=== PATIENT | female | born 1990 | race African-American/Black ===

== ENCOUNTER 2023-07-07 18:04 | Emergency (ER) | payer OTHER, SELFPAY ==
[2023-07-07 18:16] VITALS: BP 122/88; PULSE 76; RESP 16; TEMP 36.4; O2SAT 100
[2023-07-07 18:18] VITALS: BP 122/88; PULSE 76; RESP 16; TEMP 36.4; O2SAT 100
--- NOTE | 2023-07-07 18:45 | ED.FEMALEGU ---
HPI - Female Genitourinary General Chief complaint: Urogenital-Female Stated complaint: Female Urogenital Source: patient Mode of arrival: ambulatory Limitations: no limitations History of Present Illness HPI Narrative: 33-year-old female presents to [facility] with complaints of clear/white colored vaginal discharge, orders discharge for the past week. Patient reports that she does notice a fishy type odor to the discharge. Patient denies new sexual partners but is requesting STD testing at this time. Patient reports that she has had 2 vaginosis in the past for symptoms similar. Patient denies fever, chills, nausea vomiting or diarrhea. MD elicited complaint: vaginal discharge Onset (ago): week(s) (1) Vaginal discharge: white and vaginal odor Vaginal bleeding: none Exacerbating factors: none Relieving factors: none Patient : No Date of Last Menstrual Period: 06/30/23 Related Data Home Medications Medication Instructions Recorded Confirmed norethindrone 1 mg-ethinyl 1 tablet DIRECTED 07/07/23 07/07/23 estradiol 10 mcg (24)-iron 10 mcg(2) tablet (Lo Loestrin Fe) Allergies Allergy/AdvReac Type Severity Reaction Status Date / Time ibuprofen Allergy Intermediate Hives Verified 07/07/23 18:18 Review of Systems Constitutional: Constitutional: Denies chills and Denies fatigue ENT: Denies vertigo, Denies dizziness and Denies epistaxis Respiratory: Respiratory: Denies cough Gastrointestinal: Gastrointestinal: Denies diarrhea, Denies nausea and Denies vomiting Genitourinary: Genitourinary: Denies hematuria, Denies dysuria, Denies pelvic pain, Denies flank pain, Denies urinary incontinence and Reports vaginal discharge Comments: Vaginal odor Integumentary/Breasts: Skin/Breast: Denies rash PMFSH Comments At time of signature, I agree with nursing past medical, surgical, social and family history. There is no relevant family history pertinent to the presenting complaint. Exam Const: General: healthy appearing and no acute distress Nutritional Appearance: well nourished Orientation/consciousness: patient oriented x3 Limitations: no limitations HENMT: Head: normal to inspection Eyes: Conjunctivae: conjunctivae normal Neck: Neck: normal visual inspection Resp: Effort & Inspection: normal respiratory effort and not labored Auscultation: clear to auscultation bilaterally, no crackles, no rales, no rhonchi and no wheezes Cardio: Rate: regular rate Rhythm: regular rhythm Heart sounds: no murmurs GI: GI Palp: Yes Soft to palpation, No Tenderness to palpation present (GI), No Guarding due to palpation present (GI) and No Rigid due to palpation : General: Yes bladder normal to palpation Other: Vaginal exam deferred Back/Spine/Pelvis: Back: no CVA tenderness Skin: General skin exam: normal color Rashes: no rashes Wounds: no wounds Neuro: General: patient oriented x3 Speech: normal speech Gait exam (Neuro): Normal gait present Psych: Appearance: grossly normal Affect: normal affect Attitude: cooperative Course Course Level of Care: Express Care Visit Vital Signs Vital signs: Vital Signs Temperature 36.4 C L 07/07/23 18:16 Pulse Rate 76 07/07/23 18:16 Respiratory Rate 16 07/07/23 18:16 Blood Pressure 122/88 07/07/23 18:16 Pulse Oximetry 100 07/07/23 18:16 Oxygen Delivery Room Air 07/07/23 18:16 Temperature 36.4 C L 07/07/23 18:18 Pulse Rate 76 07/07/23 18:18 Respiratory Rate 16 07/07/23 18:18 Blood Pressure 122/88 07/07/23 18:18 Pulse Oximetry 100 07/07/23 18:18 Oxygen Delivery Room Air 07/07/23 18:18 MDM - Female Genitourinary MDM Narrative Medical decision making narrative: Urine culture obtained and sent to lab. Urine will be sent to lab for Trichomonas, gonorrhea chlamydia. Will treat patient with Flagyl and Diflucan to cover for BV and yeast infection. Patient denies new sexual partners. Patient agrees to
== END 2023-07-07 18:58 | disposition home or self-care (01) ==
PROVIDERS: Emergency Provider Nurse Practitioner Family
DX: N76.0 Acute vaginitis (principal)
CPT/HCPCS: 81003; 87086; 87491; 87591; 87661; 99214; G0463

== ENCOUNTER 2023-10-17 17:08 | Emergency (ER) | payer OTHER, SELFPAY ==
[2023-10-17 17:29] VITALS: BP 121/75; PULSE 77; RESP 16; TEMP 36.4; O2SAT 100
--- NOTE | 2023-10-17 17:31 | ED.FEMALEGU ---
HPI - Female Genitourinary General Chief complaint: Urogenital-Female Stated complaint: Urinary Problems Time Seen by Provider: 10/17/23 17:31 Source: patient Mode of arrival: ambulatory Limitations: no limitations History of Present Illness HPI Narrative: 33-year-old female presents with complaint of discharge, vaginal itching for 2-3 days. Was sexually active 1-2 weeks ago unprotected. Patient would like STI testing and also testing for BV. Denies . No urinary symptoms. All systems reviewed and negative except as noted above. Related Data Home Medications Medication Instructions Recorded Confirmed norethindrone 1 mg-ethinyl 1 tablet DIRECTED 07/07/23 10/17/23 estradiol 10 mcg (24)-iron 10 mcg(2) tablet (Lo Loestrin Fe) Allergies Allergy/AdvReac Type Severity Reaction Status Date / Time ibuprofen AdvReac Mild Hives Verified 10/17/23 17:11 Review of Systems Review of Systems: CONSTITUTIONAL: Denies fever, chills, or sweats. EYES: Denies visual changes, redness, or discharge. ENT: Denies rhinorrhea, congestion, sore throat, or otalgia. CARDIOVASCULAR: Denies chest pain, palpitations, or edema. RESPIRATORY: Denies cough or dyspnea. GASTROINTESTINAL: Denies abdominal pain, nausea, vomiting, or diarrhea. GENITOURINARY: Denies dysuria or hematuria. Reports vaginal discharge and itching. SKIN: Denies rash or itching. MUSCULOSKELETAL: Denies back pain, joint pain, or myalgia. NEUROLOGIC: Denies headache, numbness, or weakness. PSYCHIATRIC: Denies anxiety or depression. All other systems reviewed are negative, except as documented in HPI. PMFSH Comments At time of signature, agree with nursing past medical, surgical, social and family history. There is no relevant family history pertinent to the presenting complaint. Exam Narrative: GENERAL: This is a well-nourished, well-developed patient, in no apparent distress. HEAD: normocephalic, atraumatic. EYES: PERRL. Sclera clear/white. Vision is grossly intact. EARS: External ears normal NOSE: External nose normal NECK: Neck supple, non-tender without lymphadenopathy, masses or thyromegaly. CARDIOVASCULAR: Regular rate and rhythm without murmurs, gallops, or rubs. RESPIRATORY: Clear to auscultation. Breath sounds equal bilaterally. No wheezes, rales, or rhonchi. SKIN: warm, Dry, intact with no suspicious lesions or rash, good texture and turgor. NEURO: awake, alert, and oriented to person, place and time. There were no obvious focal neurologic abnormalities. EXTREMITIES: No joint tenderness, effusion, or edema noted. GENITOURINARY: labia minora and majora normal. no skin abnormalities or rash noted. thin white discharge noted. no odor. Course Course Level of Care: Express Care Visit Vital Signs Vital signs: Vital Signs Temperature 36.4 C L 10/17/23 17:29 Pulse Rate 77 10/17/23 17:29 Respiratory Rate 16 10/17/23 17:29 Blood Pressure 121/75 10/17/23 17:29 Pulse Oximetry 100 10/17/23 17:29 Oxygen Delivery Room Air 10/17/23 17:29 Temperature 36.4 C L 10/17/23 17:29 Pulse Rate 77 10/17/23 17:29 Respiratory Rate 16 10/17/23 17:29 Blood Pressure 121/75 10/17/23 17:29 Pulse Oximetry 100 10/17/23 17:29 Oxygen Delivery Room Air 10/17/23 17:29 Reviewed MDM - Female Genitourinary MDM Narrative Medical decision making narrative: Patient is aware of diagnosis, understands and agrees to treatment plan. Anticipatory guidance given. Patient agrees to follow-up as directed and is aware of reasons to seek care at the emergency department. Portions of this record may have been created with voice recognition software will wait for BV and STI results prior to treating with antibiotics. Will treat for yeast infection today due to vaginal itching and white discharge. Lab Data Labs: Urine Glucose Negative Reference Range:
[2023-10-18 14:51] LABS: Trichomonas Vag PCR NOT DETECTED (NOT DETECTE)
[2023-10-18 15:13] LABS: Chlamydia trachomatis NOT DETECTED (NOT DETECTE); Neisseria gonorrhoeae PCR NOT DETECTED (NOT DETECTE)
== END 2023-10-17 18:02 | disposition home or self-care (01) ==
PROVIDERS: Emergency Provider Nurse Practitioner Family
DX: N89.8 Other specified noninflammatory disorders of vagina (principal)
CPT/HCPCS: 81003; 87070; 87491; 87591; 87661; 99214; G0463